=== PATIENT | female | born 1950 | race Caucasian/White ===

== ENCOUNTER 2018-08-29 15:43 | Emergency (ER) | payer OTHER, MEDICARE ==
[2018-08-29 16:28] LABS: Absolute Lymphocytes (CBC) 2.3 K/uL (0.7-4.9); Absolute Monocytes 0.5 K/uL (0.1-1.3); Absolute Neutrophil 2.8 K/uL (1.8-8.0); Eosinophils % 5.1 % (0-4.4); Hematocrit 37.5 % (36.0-45.0); Lymphocytes % 37.5 % (15.3-44.8); MPV 9.1 fL (7.6-11.3); Monocytes % 8.6 % (3.3-12.3); RBC Red Blood Cell Count 4.29 M/uL (3.86-4.86)
[2018-08-29 16:37] LABS: Protime INR 0.96
[2018-08-29 16:48] LABS: ALT/SGPT 38 U/L (12-78); AST/SGOT 27 U/L (15-37); Alkaline Phosphatase 56 U/L (45-117); BUN Blood Urea Nitrogen 16 mg/dL (7-18); Bicarbonate 27 mmol/L (21-32); Bilirubin Direct 0.1 mg/dL (0-0.2); Bilirubin Total 0.5 mg/dL (0.2-1.0); Glucose Level 107 mg/dL (74-106); Magnesium 1.7 mg/dL (1.8-2.4); NT PRO-BNP 128 pg/mL (<125); Potassium 3.6 mmol/L (3.5-5.1); Sodium Level 144 mmol/L (136-145); Troponin (Emerg Dept Use Only) < 0.02 ng/mL (0.0-0.045)
--- NOTE | 2018-08-29 17:09 | RAD REPORT ---
EXAM DESCRIPTION: Abby Single View08/29/2018 5:00 pm CLINICAL HISTORY: Chest pain COMPARISON: none FINDINGS: The lungs appear clear of acute infiltrate. The heart is normal size IMPRESSION: No acute abnormalities displayed
--- NOTE | 2018-08-29 17:50 | EDPHYS ---
Physician Documentation [facility] Name: Anni Hernandez Age: 68 yrs Sex: Female : 1950 Arrival Date: 08/29/2018 Time: 15:45 Bed 30 Private MD: ED Physician Singh Starr HPI: 08/29 16:11 This 68 yrs old Female presents to ER via Wheelchair with complaints of Leg pm1 Pain, Leg Swelling. 16:11 The patient presents with pain, swelling. The complaints affect the right leg and left pm1 leg. Context: The problem was sustained at home, resulted from an unknown cause, the patient is not able to bear weight, the patient is able to ambulate, without difficulty, Problem is a result from a previous injury: No. Onset: The symptoms/episode began/occurred 1 week(s) ago. Modifying factors: The symptoms are alleviated by elevating leg, the symptoms are aggravated by nothing. Associated signs and symptoms: Pertinent positives: swelling, Pertinent negatives calf tenderness, fever, nausea, numbness, tingling, vomiting, warmth, weakness. Treatment prior to arrival includes: no previous treatment. Severity of symptoms: in the emergency department the symptoms have improved. The patient has not experienced similar symptoms in the past. The patient has not recently seen a physician. Patient with complaints of chest onset yesterday. No shortness of breath. Patient concerned that she might have a DVT. Her 33 yo daughter of a DVT post ankle surgery 3 months ago. Historical: - Allergies: 15:52 No Known Allergies; la1 - PMHx: 15:52 Hypertension; High Cholesterol; Anxiety; la1 - PSHx: 15:52 Thyroidectomy; Appendectomy; melanoma removal; Tubal ligation; la1 - Immunization history:: Adult Immunizations up to date. - Social history:: Smoking status: Patient/guardian denies using tobacco. - Ebola Screening: : No symptoms or risks identified at this time. ROS: 16:11 Constitutional: Negative for fever, chills, and weight loss, Eyes: Negative for injury, pm1 pain, redness, and discharge, ENT: Negative for injury, pain, and discharge, Neck: Negative for injury, pain, and swelling, Respiratory: Negative for shortness of breath, cough, wheezing, and pleuritic chest pain, Abdomen/GI: Negative for abdominal pain, nausea, vomiting, diarrhea, and constipation, Back: Negative for injury and pain. 16:11 : Negative for injury, bleeding, discharge, and swelling, MS/Extremity: Negative for injury and deformity, Skin: Negative for injury, rash, and discoloration, Neuro: Negative for headache, weakness, numbness, tingling, and seizure. 16:11 Cardiovascular: Positive for chest pain, edema, Negative for orthopnea, palpitations. Exam: 16:11 Constitutional: This is a well developed, well nourished patient who is awake, alert, pm1 and in no acute distress. Head/Face: Normocephalic, atraumatic. Eyes: Pupils equal round and reactive to light, extra-ocular motions intact. Lids and lashes normal. Conjunctiva and sclera are non-icteric and not injected. Cornea within normal limits. Periorbital areas with no swelling, redness, or edema. ENT: Nares patent. No nasal discharge, no septal abnormalities noted. Tympanic membranes are normal and external auditory canals are clear. Oropharynx with no redness, swelling, or masses, exudates, or evidence of obstruction, uvula midline. Mucous membranes moist. Neck: Trachea midline, no thyromegaly or masses palpated, and no cervical lymphadenopathy. Supple, full range of motion without nuchal rigidity, or vertebral point tenderness. No Meningismus. Chest/axilla: Normal chest wall appearance and motion. Nontender with no deformity. No lesions are appreciated. Respiratory: Lungs have equal breath sounds bilaterally, clear to auscultation and percussion. No rales, rhonchi or wheezes noted. No increased work of breathing, no retractions or nasal flaring. Abdomen/GI: Soft, non-tender, with normal bowel sounds. No distension or tympany. No guarding or rebound. No evidence of tenderness throughout. Back: No spinal tenderness. No costovertebral tenderness. Full range of motion. Skin: Warm, dry with normal turgor. Normal color with no rashes, no lesions, and no evidence of cellulitis. MS/ Extremity: Pulses equal, no cyanosis. Neurovascular intact. Full, normal range of motion. 16:11 Cardiovascular: Rate: normal, Rhythm: regular, Pulses: no pulse deficits are appreciated, Heart sounds: normal, normal S1and S2, no S3 or S4, no murmur, no rub, no gallop, Edema: pedal edema, that is very mild. 16:11 Neuro: Orientation: is normal, Motor: is normal, moves all fours. 16:29 ECG interpretation: NSR, Normal ECG 61 BPM pm1 Vital Signs: 15:52 BP 125 / 59; Pulse 80; Resp 16; Temp 97.1; Pulse Ox 98% on R/A; Weight 90.72 kg; Height la1 5 ft. 4 in. (162.56 cm); 16:58 BP 120 / 81; Pulse 77; Resp 18; Pulse Ox 100% on R/A; mg2 15:52 Body Mass Index 34.33 (90.72 kg, 162.56 cm) la1 MDM: 15:56 Patient medically screened. pm1 16:51 ED course: negative for DVT bilateral lower extremity U/S. pm1 17:48 Data reviewed: vital signs. Data interpreted: Pulse oximetry: on room air is 100 %. pm1 Interpretation: normal. Counseling: I had a detailed discussion with the patient and/or guardian regarding: the historical points, exam findings, and any diagnostic results supporting the discharge/admit diagnosis, lab results, radiology results, the need for outpatient follow up, to return to the emergency department if symptoms worsen or persist or if there are any questions or concerns that arise at home. 08/29 16:06 Order name: Basic Metabolic Panel pm1 08/29 16:06 Order name: CBC with Diff pm1 08/29 16:06 Order name: LFT's pm08/29 16:06 Order name: Magnesium pm08/29 16:06 Order name: NT PRO-BNP pm08/29 16:06 Order name: PT-INR; Complete Time: 16:41 pm1 08/29 16:06 Order name: Troponin (emerg Dept Use Only); Complete Time: 16:51 pm1 08/29 16:06 Order name: XRAY Chest (1 view); Complete Time: 17:10 pm1 08/29 16:06 Order name: Extrem Venous W Compression [place] US pm08/29 16:07 Order name: Basic Metabolic Panel; Complete Time: 16:51 EDMS 08/29 16:07 Order name: CBC with Automated Diff; Complete Time: 16:32 EDMS 08/29 16:07 Order name: Liver (Hepatic) Function; Complete Time: 16:51 EDMS 08/29 16:07 Order name: Magnesium; Complete Time: 16:51 EDMS 08/29 16:07 Order name: NT PRO-BNP; Complete Time: 16:51 EDMS 08/29 16:06 Order name: EKG; Complete Time: 16:07 pm1 08/29 16:06 Order name: Cardiac monitoring; Complete Time: 16:20 pm1 08/29 16:06 Order name: EKG - Nurse/Tech; Complete Time: 16:41 pm1 08/29 16:06 Order name: IV Saline Lock; Complete Time: 16:41 pm1 08/29 16:06 Order name: Labs collected and sent; Complete Time: 16:42 pm1 08/29 16:06 Order name: O2 Per Protocol; Complete Time: 16:42 pm1 08/29 16:06 Order name: O2 Sat Monitoring; Complete Time: 16:42 pm1 Administered Medications: 18:05 Drug: Magnesium 400 mg Route: PO; mg2 18:05 Follow up: Response: No adverse reaction; Medication administered at discharge. mg2 Disposition: 18:30 Co-signature as Attending Physician, Singh Starr MD. rn Disposition: 08/29/18 17:49 Discharged to Home. Impression: Edema, unspecified - bilateral dependent edema, Chest pain, unspecified. - Condition is Stable. - Discharge Instructions: Nonspecific Chest Pain, Edema. - Medication Reconciliation Form, Thank You Letter, Antibiotic Education, Prescription Opioid Use form. - Follow up: Emergency Department; When: As needed; Reason: Worsening of condition. Follow up: Private Physician; When: 2 - 3 days; Reason: Recheck today's complaints, Continuance of care, Re-evaluation by your physician. - Problem is new. - Symptoms have improved. Signatures: Dispatcher [employer] Singh Randle MD MD rn Attema, Lee, RN RN la1 Bharath Duong NP MAKING MACHINE CATCHER pm1 Andrea Arnold RN RN mg2 Corrections: (The following items were deleted from the chart) 17:51 17:49 08/29/2018 17:49 Discharged to Home. Impression: Edema, unspecified - bilateral pm1 dependent edema. Condition is Stable. Forms are Medication Reconciliation Form, Thank You Letter, Antibiotic Education, Prescription Opioid Use. Follow up: Emergency Department; When: As needed; Reason: Worsening of condition. Follow up: Private Physician; When: 2 - 3 days; Reason: Recheck today's complaints, Continuance of care, Re-evaluation by your physician. Problem is new. Symptoms have improved. pm1 18:10 17:51 08/29/2018 17:49 Discharged to Home. Impression: Edema, unspecified - bilateral mg2 dependent edema; Chest pain, unspecified. Condition is Stable. Forms are Medication Reconciliation Form, Thank You Letter, Antibiotic Education, Prescription Opioid Use. Follow up: Emergency Department; When: As needed; Reason: Worsening of condition. Follow up: Private Physician; When: 2 - 3 days; Reason: Recheck today's complaints, Continuance of care, Re-evaluation by your physician. Problem is new. Symptoms have improved. pm1
--- NOTE | 2018-08-29 17:50 | ER ---
Nurse's Notes [facility] Name: Anni Hernandez Age: 68 yrs Sex: Female : 1950 Arrival Date: 08/29/2018 Time: 15:45 Bed 30 Private MD: Diagnosis: Edema, unspecified-bilateral dependent edema;Chest pain, unspecified Presentation: 08/29 15:49 Presenting complaint: Patient states: I have had swelling and bruising in both of my la1 legs for the last day. I also am having chest pain that started just recently. Transition of care: patient was not received from another setting of care. Onset of symptoms was August 29, 2018. Risk Assessment: Do you want to hurt yourself or someone else? Patient reports no desire to harm self or others. Initial Sepsis Screen: Does the patient meet any 2 criteria? No. Patient's initial sepsis screen is negative. Does the patient have a suspected source of infection? No. Patient's initial sepsis screen is negative. Care prior to arrival: None. 15:49 Method Of Arrival: Wheelchair la1 15:49 Acuity: TOAN 3 la1 Historical: - Allergies: 15:52 No Known Allergies; la1 - PMHx: 15:52 Hypertension; High Cholesterol; Anxiety; la1 - PSHx: 15:52 Thyroidectomy; Appendectomy; melanoma removal; Tubal ligation; la1 - Immunization history:: Adult Immunizations up to date. - Social history:: Smoking status: Patient/guardian denies using tobacco. - Ebola Screening: : No symptoms or risks identified at this time. Screenin:08 Abuse screen: Denies threats or abuse. Denies injuries from another. Nutritional mg2 screening: No deficits noted. Tuberculosis screening: No symptoms or risk factors identified. Fall Risk IV access (20 points). Assessment: 16:06 General: Appears in no apparent distress. comfortable, Behavior is calm, cooperative. mg2 Pain: Complains of pain in right leg Pain does not radiate. Pain currently is 5 out of 10 on a pain scale. Quality of pain is described as aching, Pain began gradually, 2-3 days ago. Is intermittent. Neuro: Level of Consciousness is awake, alert, obeys commands, Oriented to person, place, time, situation. Cardiovascular: Capillary refill < 3 seconds Patient's skin is warm and dry. Respiratory: Airway is patent Respiratory effort is even, unlabored, Respiratory pattern is regular, symmetrical. GI: No signs and/or symptoms were reported involving the gastrointestinal system. : No signs and/or symptoms were reported regarding the genitourinary system. EENT: No signs and/or symptoms were reported regarding the EENT system. Derm: Skin is intact, is healthy with good turgor, Skin is pink, warm \T\ dry. normal. Musculoskeletal: Circulation, motion, and sensation intact. Capillary refill < 3 seconds. Vital Signs: 15:52 BP 125 / 59; Pulse 80; Resp 16; Temp 97.1; Pulse Ox 98% on R/A; Weight 90.72 kg; Height la1 5 ft. 4 in. (162.56 cm); 16:58 BP 120 / 81; Pulse 77; Resp 18; Pulse Ox 100% on R/A; mg2 15:52 Body Mass Index 34.33 (90.72 kg, 162.56 cm) la1 ED Course: 15:45 Patient arrived in ED. as 15:51 Triage completed. la1 15:52 Arm band placed on left wrist. la1 15:54 Bharath Duong NP is PHCP. pm1 15:54 Singh Starr MD is Attending Physician. pm1 15:56 Andrea Arnold, ANNEMARIE is Primary Nurse. mg2 16:09 Patient has correct armband on for positive identification. mg2 16:44 No provider procedures requiring assistance completed. Inserted saline lock: 20 gauge mg2 in right antecubital area, using aseptic technique. Blood collected. 16:56 XRAY Chest (1 view) In Process Unspecified. EDMS 18:09 IV discontinued, intact, bleeding controlled, No redness/swelling at site. Pressure mg2 dressing applied. 18:31 Extrem Venous W Compression [place] US In Process Unspecified. EDMS Administered Medications: 18:05 Drug: Magnesium 400 mg Route: PO; mg2 18:05 Follow up: Response: No adverse reaction; Medication administered at discharge. mg2 Outcome: 17:49 Discharge ordered by . pm1 18:09 Discharged to home ambulatory. mg2 18:09 Condition: stable 18:09 Discharge instructions given to patient, Instructed on discharge instructions, follow up and referral plans. medication usage, Demonstrated understanding of instructions, follow-up care, medications. 18:10 Patient left the ED. mg2 Signatures: Dispatcher [employer] Rashida Trevino Lee, RN RN la1 Bharath Duong, GAYLE FINISHER HOT STRIP pm1 Andrea Arnold RN RN mg2 Corrections: (The following items were deleted from the chart) 15:52 15:49 Acuity: TOAN 2 la1 la1
[2018-08-29] MEDS ORDERED: MAGNESIUM OXIDE 400 MG TAB ONE (18:12)
--- NOTE | 2018-08-29 18:46 | RAD REPORT ---
EXAM DESCRIPTION: USExtrem Venous W Compress Bil08/29/2018 6:31 pm CLINICAL HISTORY: Bilateral leg swelling and pain COMPARISON: none FINDINGS: The common femoral, superficial femoral, popliteal and posterior tibial veins bilaterally are compressible and demonstrate augmentation. Doppler demonstrates good flow. IMPRESSION: No evidence of deep venous thrombosis involving either lower extremity.
--- NOTE | 2018-08-30 07:49 | EKG ---
Test Date: 2018-08-29 Test Time: 16:26:12 Cosmetic Sales Assistant: MATEO MEASUREMENT RESULTS: Intervals: Rate: 61 MD: 164 QRSD: 80 QT: 464 QTc: 467 Horton: P: 41 MD: 164 QRS: -3 T: 42 INTERPRETIVE STATEMENTS: Normal sinus rhythm Normal ECG No previous ECG available for comparison Electronically Signed On 08-30-18 07:46:55 CDT by Sudhir Fox
== END 2018-08-29 18:10 | disposition home or self-care (01) ==
LOC: ER 15:43
DX: R60.0 Localized edema (principal); R07.9 Chest pain, unspecified; I10 Essential (primary) hypertension; E78.00 Pure hypercholesterolemia, unspecified; F41.9 Anxiety disorder, unspecified
CPT/HCPCS: 36415; 71045; 80048; 80076; 83735; 83880; 84484; 85025; 85610; 93005; 93970; 99284